=== PATIENT | male | born 1995 | race Caucasian/White ===

== ENCOUNTER 2020-06-24 20:27 | Emergency (ER) | payer OTHER ==
[~2020-06-24] VITALS: Ht 182.9 cm; Wt 131.8 kg
[~2020-06-24 20:27] MED LIST: CORTEF 5 MG TAB5 MG PO; NORCO 7.5/325 T1 TA1 PO; PROAIR HFA8.5 GM INH; SYNTHROID100 MCG PO
[2020-06-24 20:35] VITALS: Ht 182.9 cm; Wt 131.8 kg
[2020-06-24] MEDS ORDERED: CELEXA20 MG PO (20:38)
[2020-06-24] MEDS ORDERED: CLARITIN 10 MG10 MG PO (20:38)
[2020-06-24] MEDS ORDERED: FEXOFENADINE HC60 MG (20:38)
[2020-06-24] MEDS ORDERED: ERYTHROMYCIN OPT1 GM LEFT EYE (21:11)
[2020-06-24 21:32] VITALS: BP 143/86
== END 2020-06-24 21:30 | disposition home or self-care (01) ==
LOC: D.ER 20:27
DX: T15.92XA Foreign body on external eye, part unspecified, left eye, initial encounter (principal); X58.XXXA Exposure to other specified factors, initial encounter